=== PATIENT | female | born 1945 | race Caucasian/White ===

== ENCOUNTER 2016-12-12 12:22 | Emergency (ER) | payer OTHER ==
[~2016-12-12] VITALS: Ht 172.7 cm; Wt 115.7 kg
--- NOTE | ~2016-12-12 | CR281 ---
[facility] A Service of [facility] RADIOLOGY TEXT RESULTS PATIENT: JORGE SEVILLA LOCATION: [facility] : 49 UNIT #: [id number] AGE: [address]: Mraisela Guerrier APRN SEX: F ORDER DR: [id number] [facility] [address] [place], [place] [address] [id number] MR#: [id number] Acc #: [id number] NAME: JORGE SEVILLA : 1945 SEX: F STUDY DATE/TIME: 12/12/2016 13:47 UNIT: CFTX ROOM: STUDY DESCRIPTION: CR Wrist Min 3 View Lt Attending Physician: Marisela Guerrier A.P.R.N. Ordering Physician: Ed Doctor [id number] [facility] Primary Care Physician: Cesar Smith M.D. MEDICAL IMAGING REPORT This report is preliminary unless electronic signature is present EXAM Three-views left wrist Date: 12/12/2016 HISTORY Left wrist pain today after falling. COMPARISON None. FINDINGS Comminuted impacted intrajugular fracture left distal radial metaphysis without significant angulation. Nondisplaced fracture ulnar styloid process. Carpal bones appear intact. Degenerative cystic change within the scaphoid. Mild degenerative change of the first carpometacarpal junction. 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 IMPRESSION 1. Comminuted impacted shift or interarticular fracture left distal radial metaphysis without appreciable angulation. No dislocation. 2. Nondisplaced ulnar styloid process fracture. 3. Degenerative change of the left hand and wrist, greatest at the fifth proximal distal interphalangeal joints. Dictated by... Lorena Hebert M.D. [facility] A Service of [facility] RADIOLOGY TEXT RESULTS PATIENT: JORGE SEVILLA LOCATION: [facility] : [birth year] UNIT #: [id number] AGE: [address]: Marisela Guerrier APRN SEX: F ORDER DR: THIS IS AN ELECTRONICALLY VERIFIED REPORT Lorena Hebert M.D. at 12/13/2016 2:03 PM Alejandro TD: 12/12/2016 19:59 JOB #: [id number] MEDICAL IMAGING REPORT Page 1 of 1 COPY
== END 2016-12-12 15:02 | disposition home or self-care (01) ==
LOC: CFTX 12:22 → CED 12:22 → CFTX 14:41
DX: S52.502A Unspecified fracture of the lower end of left radius, initial encounter for closed fracture (principal); S52.615A Nondisplaced fracture of left ulna styloid process, initial encounter for closed fracture; F32.9 Major depressive disorder, single episode, unspecified; F41.9 Anxiety disorder, unspecified; Z86.718 Personal history of other venous thrombosis and embolism; W01.0XXA Fall on same level from slipping, tripping and stumbling without subsequent striking against object, initial encounter; Y92.009 Unspecified place in unspecified non-institutional (private) residence as the place of occurrence of the external cause; Z88.8 Allergy status to other drugs, medicaments and biological substances
CPT/HCPCS: 29125; 73110; 99283